=== PATIENT | female | born 1990 | race Caucasian/White ===

== ENCOUNTER 2017-01-22 09:59 | Emergency (ER) | payer MEDICAID ==
[~2017-01-22] VITALS: Ht 162.6 cm; Wt 56.7 kg
[2017-01-22 10:22] VITALS: BP 124/83; PULSE 58; RESP 20; TEMP 97.4; O2SAT 100
--- NOTE | 2017-01-22 10:22 | NUR ---
Pt c/o Blisters to Right upper lip since this AM. Pt states that it pham. Denies trauma to face or lip.
--- NOTE | 2017-01-22 10:25 | NUR ---
JESUS performed in triage per Dr. Horn.
[2017-01-22 10:35] VITALS: BP 124/76; PULSE 64; RESP 20; TEMP 97.8; O2SAT 100
--- NOTE | 2017-01-22 10:35 | NUR ---
Patient given written and verbal discharge instructions and verbalizes understanding. ER MD discussed with patient the results and treatment provided. Patient in stable condition. ID arm band removed. Rx of Acyclovir given. Patient educated on pain management and to follow up with PMD. Pain Scale 5/10, tolerable. Opportunity for questions provided and answered.
== END 2017-01-22 10:35 | disposition home or self-care (01) ==
LOC: SED 09:59
DX: B00.1 Herpesviral vesicular dermatitis (principal); R03.0 Elevated blood-pressure reading, without diagnosis of hypertension
CPT/HCPCS: 99283

== ENCOUNTER 2019-07-25 09:13 | Emergency (ER) | payer MEDICAID ==
[~2019-07-25] VITALS: Ht 162.6 cm; Wt 57.6 kg
[2019-07-25 09:13] VITALS: BP_SYST 110
[2019-07-25 11:20] VITALS: BP_SYST 108
== END 2019-07-25 11:20 | disposition home or self-care (01) ==
LOC: SED 09:13
DX: F07.81 Postconcussional syndrome (principal)
CPT/HCPCS: 70450-TC; 81025; 99284

== ENCOUNTER 2021-04-12 09:17 | Emergency (ER) | payer MEDICAID ==
[~2021-04-12] VITALS: Ht 162.6 cm; Wt 58.1 kg
[2021-04-12 09:19] VITALS: BP_SYST 135
[2021-04-12 09:48] LABS: BASOPHILS % (AUTO) 0.6 % (0.0-2.0); EOSINOPHILS # (AUTO) 0.1 K/uL (0.0-0.4); EOSINOPHILS % (AUTO) 1.4 % (0.0-4.0); HEMOGLOBIN 13.7 g/dL (12.0-16.0); LYMPHOCYTES % (AUTO) 32.7 % (20.5-51.5); MEAN CORPUSCULAR HEMOGLOBIN 29 pg (27-31); MEAN CORPUSCULAR HGB CONC 34 % (32-36); MEAN CORPUSCULAR VOLUME 88 fL (79.0-98.0); MONOCYTES # (AUTO) 0.5 K/uL (0.0-1.0); MONOCYTES % (AUTO) 7.9 % (1.7-9.3); NEUTROPHILS # (AUTO) 3.5 K/uL (1.8-7.7); NEUTROPHILS % (AUTO) 57.4 % (40.0-70.0); PLATELET COUNT (AUTO) 181 K/uL (130-430); RED BLOOD CELL COUNT(AUTO) 4.67 MIL/uL (4.2-6.2); RED CELL DISTRIBUTION WIDTH 13.1 % (9.0-15.0); WHITE BLOOD COUNT (AUTO) 6.1 K/uL (4.8-10.8)
[2021-04-12 09:55] LABS: CALCIUM 8.9 mg/dL (8.4-11.0); CREATININE 0.64 mg/dL (0.55-1.30); POTASSIUM 4.1 mmol/L (3.5-5.1)
[2021-04-12 09:57] LABS: BILIRUBIN,URINE NEGATIVE (NEGATIVE); BLOOD, URINE NEGATIVE (NEGATIVE); CLARITY/URINE CLEAR (CLEAR); COLOR,URINE YELLOW (YELLOW); GLUCOSE,URINE NEGATIVE (NEGATIVE); KETONES,URINE NEGATIVE (NEGATIVE); LEUKOCYTE ESTERASE ,URINE NEGATIVE (NEGATIVE); NITRITE, URINE NEGATIVE (NEGATIVE); PH,URINE 7.5 (5.0-8.0); PROTEIN URINE NEGATIVE (NEGATIVE); UROBILINOGEN,URINE 0.2 (0.2-1.0)
[2021-04-12 10:00] LABS: ALBUMIN 4.2 g/dL (3.4-4.8); TOTAL BILIRUBIN 0.7 mg/dL (0.0-1.0)
[2021-04-12 10:22] LABS: C-REACTIVE PROTEIN QUANT 0.2 mg/dL (0-0.5)
[2021-04-12 10:52] LABS: PROTHROMBIN TIME 10.4 SECS (9.5-12.5)
[2021-04-12] MEDS ORDERED: IBUP-1969 PO (10:59)
[2021-04-12] MEDS ORDERED: HYDR-3917 PO (10:59)
[2021-04-12 11:15] VITALS: BP_SYST 129
== END 2021-04-12 11:14 | disposition home or self-care (01) ==
LOC: SED 09:17
DX: R10.9 Unspecified abdominal pain (principal); Z79.899 Other long term (current) drug therapy
CPT/HCPCS: 36415; 76376; 80053; 81003; 81025; 82150; 83605; 83615; 83690; 84703; 85025; 85610-TC; 85730-TC; 86140; 99284

== ENCOUNTER 2022-06-28 10:41 | Emergency (ER) | payer MEDICAID ==
[~2022-06-28] VITALS: Ht 162.6 cm; Wt 54.4 kg
[~2022-06-28 10:41] MED LIST: HYDR-3917 PO; IBUP-1969 PO
[2022-06-28 11:09] VITALS: BP_SYST 115
== END 2022-06-28 12:30 | disposition left against medical advice (07) ==
LOC: SED 10:41
DX: R51.9 Headache, unspecified (principal); Z53.21 Procedure and treatment not carried out due to patient leaving prior to being seen by health care provider

== ENCOUNTER 2022-09-02 06:25 | Emergency (ER) | payer MEDICAID ==
[~2022-09-02] VITALS: Ht 162.6 cm; Wt 63.5 kg
[2022-09-02 06:32] VITALS: BP_SYST 125
--- NOTE | 2022-09-02 06:36 | NUR ---
PT HERE C/O NECK PAIN ON AND OFF X1 MONTH WITH INTERMITTENT HEADACHE. PT DENIES FALL/TRAUMA. PMH:DENIES PT AAOX4, NO SOB NOTED AND NAD.
--- NOTE | 2022-09-02 06:43 | NUR ---
MD Hanna at bedside examining pt.
[2022-09-02] MEDS ORDERED: METOCLOPRAMIDE HCL 10 MG TABLET PO ONE (06:45)
[2022-09-02] MEDS ORDERED: DIPHENHYDRAMINE HCL 25 MG CAPSULE PO ONE (06:45)
[2022-09-02] MEDS ORDERED: KETOROLAC TROMETHAMINE 15 MG VIAL IM ONE (06:45)
[2022-09-02] MEDS ORDERED: methocarbamoL 500 MG TABLET PO ONE (06:45)
[2022-09-02] MEDS ORDERED: ACETAMINOPHEN 325 MG TABLET PO ONE (07:00)
--- NOTE | 2022-09-02 07:07 | NUR ---
Pt report endorsed to Chasity. Questions/Concerns answered.
--- NOTE | 2022-09-02 07:10 | NUR ---
Opening Note: Report rc'vd from outgoing NOC RN, all cares assumed
[2022-09-02 07:14] LABS: BASOPHILS % (AUTO) 0.8 % (0.0-2.0); EOSINOPHILS # (AUTO) 0.1 K/uL (0.0-0.4); EOSINOPHILS % (AUTO) 1.6 % (0.0-4.0); HEMATOCRIT 38.6 % (36-48); HEMOGLOBIN 13.1 g/dL (12.0-16.0); LYMPHOCYTES # (AUTO) 2.1 K/uL (1.0-5.5); LYMPHOCYTES % (AUTO) 35.5 % (20.5-51.5); MEAN CORPUSCULAR HEMOGLOBIN 29 pg (27-31); MEAN CORPUSCULAR HGB CONC 34 % (32-36); MEAN CORPUSCULAR VOLUME 86 fL (79.0-98.0); MONOCYTES # (AUTO) 0.5 K/uL (0.0-1.0); MONOCYTES % (AUTO) 9.2 % (1.7-9.3); NEUTROPHILS # (AUTO) 3.1 K/uL (1.8-7.7); NEUTROPHILS % (AUTO) 52.9 % (40.0-70.0); PLATELET COUNT (AUTO) 199 K/uL (130-430); RED BLOOD CELL COUNT(AUTO) 4.48 MIL/uL (4.2-6.2); RED CELL DISTRIBUTION WIDTH 13.2 % (9.0-15.0); WHITE BLOOD COUNT (AUTO) 5.9 K/uL (4.8-10.8)
[2022-09-02 07:25] LABS: CALCIUM 8.6 mg/dL (8.4-11.0); CREATININE 0.78 mg/dL (0.55-1.30); POTASSIUM 4.4 mmol/L (3.5-5.1)
[2022-09-02 07:29] LABS: ALBUMIN 4.1 g/dL (3.4-4.8); TOTAL BILIRUBIN 0.4 mg/dL (0.0-1.0)
--- NOTE | 2022-09-02 07:40 | NUR ---
Patient AOx4 in no acute distress and or discomfort, patient friendly and cooperative. Vitals WNL.
[2022-09-02] MEDS ORDERED: METH-799 PO (07:58)
[2022-09-02 08:03] VITALS: BP_SYST 119
--- NOTE | 2022-09-02 08:03 | NUR ---
Patient given written and verbal discharge instructions and verbalizes understanding. ER MD discussed with patient the results and treatment provided. Patient in stable condition. ID arm band removed. IV catheter removed intact and dressing applied, no active bleeding. Rx given. Patient educated on pain management and to follow up with PMD. Pain Scale 0/10 Opportunity for questions provided and answered. Medication side effect fact sheet provided.
== END 2022-09-02 08:03 | disposition home or self-care (01) ==
LOC: SED 06:25
DX: S16.1XXA Strain of muscle, fascia and tendon at neck level, initial encounter (principal); R51.9 Headache, unspecified; Z79.899 Other long term (current) drug therapy; X58.XXXA Exposure to other specified factors, initial encounter; Y93.89 Activity, other specified; Y92.89 Other specified places as the place of occurrence of the external cause; Y99.8 Other external cause status
CPT/HCPCS: 99284; 80053; 85025; 36415; 81025; Q0163; J8597; J1885